=== PATIENT | male | born 1980 | race Caucasian/White ===

== ENCOUNTER 2023-04-22 23:31 | Emergency (ER) | payer OTHER ==
[2023-04-22 23:43] VITALS: BP 166/98; PULSE 85; RESP 20; TEMP 98; BMI 38.8
[2023-04-23 00:46] LABS: BASO % 0.4 % (0-2.0); EOS % 1.2 % (0-4.5); HEMATOCRIT 41.9 % (35.4-49); HEMOGLOBIN 14.6 GM/dL (11.7-16.9); LYMPH % 17.1 % (8-40); MCH 30.3 pg (25.7-33.7); MEAN CELL VOLUME 86.7 fl (80-96); MEAN PLT VOLUME 8.2 fl (7.5-11.1); MONO % 6.1 % (3.8-10.2); NEUT % 75.2 % (42.8-82.8); PLATELET COUNT 194 10^3/uL (134-434); RBC 4.83 M/mm3 (4.00-5.60); RDW 13.2 % (11.9-15.9); VENOUS BASE EXCESS 0.7 mmol/L (-2-2); VENOUS O2 SATURATION 33.9 % (70-80); VENOUS PCO2 44.8 mmHg (38-52); VENOUS PH 7.384 (7.310-7.410); WHITE BLOOD COUNT 9.3 K/mm3 (4.0-10.0)
[2023-04-23 00:49] LABS: PH,URINE 6.5 (5.0-8.0); URINE APPEARANCE CLEAR; URINE BILIRUBIN NEGATIVE (NEGATIVE); URINE COLOR YELLOW; URINE GLUCOSE (UA) NEGATIVE (NEGATIVE); URINE KETONE NEGATIVE (NEGATIVE); URINE LEUK ESTERASE NEGATIVE (NEGATIVE); URINE NITRITE NEGATIVE (NEGATIVE); URINE PROTEIN NEGATIVE (NEGATIVE); URINE UROBILINOGEN 0.2 mg/dL (0.2-1.0)
[2023-04-23 01:17] LABS: CHLORIDE 104 mmol/L (98-107); SODIUM 137 mmol/L (136-145)
[2023-04-23 01:21] LABS: ALBUMIN 4.2 g/dl (3.4-5.0); ANION GAP 5 MMOL/L (8-16); BLOOD UREA NITROGEN 13.7 mg/dL (7-18); CO2 28 mmol/L (21-32); GLUCOSE,RANDOM 129 mg/dL (74-106)
[2023-04-23 01:24] LABS: CREATININE 0.7 mg/dL (0.55-1.3); SGOT/AST 53 U/L (15-37); SGPT/ALT 72 U/L (13-61)
[2023-04-23 01:26] LABS: BILIRUBIN,TOTAL 0.4 mg/dL (0.2-1)
[2023-04-23 01:27] LABS: ALK PHOS 150 U/L (45-117)
== END 2023-04-23 03:50 | disposition home or self-care (01) ==
LOC: JER 23:31
DX: Z04.1 Encounter for examination and observation following transport accident (principal)
CPT/HCPCS: 0241U-QW; 36415; 70450-TC; 71045-TC-FY; 72125-TC; 72170-TC-FY; 80053; 80307; 81003; 82803; 85025; 86850; 86900; 86901; 93005; 93010; 99285-25